=== PATIENT | female | born 1970 | race African-American/Black ===

== ENCOUNTER 2021-09-15 09:19 | Day surgery (SDC) | payer BC ==
[2021-09-09 13:37] VITALS: BMI 25.7
[2021-09-15 09:53] VITALS: TEMP 96.6
[2021-09-15 10:56] VITALS: RESP 18
[2021-09-15 12:11] VITALS: BP 101/56; PULSE 69
== END 2021-09-15 12:15 | disposition home or self-care (01) ==
LOC: FASU-ENDO 09:19
PROVIDERS: ATTEND Internal Medicine Gastroenterology
PROC: 0DJD8ZZ Inspection of Lower Intestinal Tract, Via Natural or Artificial Opening Endoscopic (ICD-10-PCS; principal; 2021-09-15 10:28)
DX: Z12.11 Encounter for screening for malignant neoplasm of colon (principal)
CPT/HCPCS: 84703